=== PATIENT | male | born 1995 | race Caucasian/White ===

== ENCOUNTER 2016-10-25 08:54 | Emergency (ER) | payer OTHER ==
[~2016-10-25] VITALS: Ht 185.4 cm; Wt 83.9 kg
[~2016-10-25 08:54] MED LIST: FLEXERIL10 MG PO; MEDROL 2 MG TABL2 MG PO; MOTRIN 600 MG600 MG PO; PERCOCET 325 MG1 TA2 PO
[2016-10-25 08:57] VITALS: BP 135/84
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
== END 2016-10-25 09:55 ==
LOC: ERH 08:54
DX: S16.1XXA Strain of muscle, fascia and tendon at neck level, initial encounter (principal); S29.011A Strain of muscle and tendon of front wall of thorax, initial encounter; S29.012A Strain of muscle and tendon of back wall of thorax, initial encounter; V49.40XA Driver injured in collision with unspecified motor vehicles in traffic accident, initial encounter; Y92.410 Unspecified street and highway as the place of occurrence of the external cause